=== PATIENT | male | born 1985 | race Two or more races ===

== ENCOUNTER 2023-08-02 21:05 | Emergency (ER) | payer OTHER ==
[~2023-08-02] VITALS: Ht 175.3 cm; Wt 88.5 kg
[2023-08-02] MEDS ORDERED: predniSONE 50 MG TABLET PO ONE (22:00)
[2023-08-02] MEDS ORDERED: diphenhydrAMINE HCL 25 MG CAPSULE PO ONE (22:00)
[2023-08-02] MEDS ORDERED: diphenhydrAMINE HCL 50 MG CAPSULE ONE (22:04)
[2023-08-02] MEDS ORDERED: predniSONE 20 MG TABLET ONE (22:04)
[2023-08-03] MEDS ORDERED: PRED50TA PO (00:19)
[2023-08-03 00:49] VITALS: TEMP 98
[2023-08-03 00:51] VITALS: BP 154/102; O2SAT 95
== END 2023-08-03 00:53 | disposition home or self-care (01) ==
LOC: ER 21:10
DX: T78.3XXA Angioneurotic edema, initial encounter (principal); Z79.899 Other long term (current) drug therapy; Z60.2 Problems related to living alone
CPT/HCPCS: 99283; Q0163; J7512